=== PATIENT | female | born 1970 ===

== ENCOUNTER 2017-05-06 08:05 | Day surgery (SDC) | payer BC ==
[~2017-05-06 08:05] MED LIST: Buffered Lidocaine 0.9% SYRIN* 5 ML/SYR SYRINGE INTRADERM ONE
[2017-05-06] MEDS ORDERED: fentaNYL* 50 MCG/ML 2 ML VIAL (100 MCG VIAL) ONE (08:22)
[2017-05-06] MEDS ORDERED: Midazolam* 1 MG/ML 2 ML VIAL (2 MG) ONE (08:22)
[2017-05-06] MEDS ORDERED: Propofol* 10 MG/ML 20 ML BTL IV PUSH ONE (08:30)
[2017-05-06] MEDS ORDERED: Clindamycin 900 MG IVPREMIX(* 900 MG/50 ML SDV IV ONE (08:52)
[2017-05-06] MEDS ORDERED: Lidocaine 1% INJ* 10 MG/ML 30 ML SDV ONE (09:07)
[2017-05-06] MEDS ORDERED: Bupivacaine 0.5% SDV PF* 10-30ML VIAL ONE (09:07)
[2017-05-06] MEDS ORDERED: fentaNYL* 50 MCG/ML 2 ML VIAL (100 MCG VIAL) IV PRN (09:43)
[2017-05-06] MEDS ORDERED: Ketorolac INJ* 30 MG/ML 1 ML VIAL IV PRN (09:43)
[2017-05-06] MEDS ORDERED: Naloxone* 0.4 MG/ML 1 ML VIAL IV PRN (09:43)
[2017-05-06] MEDS ORDERED: DiMENhydriNATE IV* 50 MG/ML VIAL IV PUSH PRN (09:45)
[2017-05-06] MEDS ORDERED: Dexamethasone IV* 4 MG/ML 1 ML (4 MG) ONE (09:50)
[2017-05-06 10:33] VITALS: BP 121/71
--- NOTE | 2017-05-06 12:50 | OP ---
DATE OF OPERATION: 05/06/2017. DATE OF : 1970. SURGEON: Bradley Dobson DPM. COAL CARRIER: None. ANESTHESIA: MAC with local. PRE-OP DIAGNOSIS: 1. Painful dorsal bone spur at the base of the first metatarsal and medial cuneiform joint on the ri ght foot. 2. Synovial cyst with associated neuritis on the right foot. POST-OP DIAGNOSIS: 1. Painful dorsal bone spur at the base of the first metatarsal and medial cuneiform joint on the ri ght foot. 2. Synovial cyst with associated neuritis on the right foot. OPERATIVE PROCEDURE: 1. Excision of synovial cyst from the dorsal right foot. 2. Excision of bone spurs from the base of the first metatarsal and medial cuneiform joint on the ri ght foot. PATHOLOGY: Resected hypertrophic bone and synovial cyst. HEMOSTASIS: Pneumatic ankle tourniquet. ESTIMATED BLOOD LOSS: Less than 10 cc. INDICATIONS: Patient with chronic dorsal bone spur on the right foot which has progressively grown i n size. There is also intermittent swelling and inflammation associated with this, as well as parest hesia and pain wearing a closed shoe. The condition has worsened to the point where she often cannot wear shoes due to the pain. She opts for surgery at this time to attempt to remove the bone growth and reduce the pain so it improves her ability to wear shoes without pain and walk. DESCRIPTION OF PROCEDURE: The patient was brought to the operating room and placed on the operating room table in supine position. The anesthesia department administered IV sedation and peripheral ner ve block performed about the dorsal right foot with a 1:1 mixture of 1% Lidocaine plain and 0.5% David bruce plain. The right foot was then prepped and draped in the usual fashion. The right foot was the n exsanguinated with a Esmarch bandage and a pneumatic ankle tourniquet was inflated to 250 mmHg abov e a well-padded right ankle. Attention was direct to the dorsal aspect of the right foot where a vis ible and palpable subcutaneous cyst and bone spur was noted at the base of the first metatarsal and m edial cuneiform joint. A curvilinear incision was made deep into the subcutaneous tissue with care be ing taken to retract neurovascular structures and cauterized superficial bleeders as needed. Medial to the mass was the deep peroneal nerve and more medial was a branch of the medial dorsal cutaneous n erve. These were identified and protected throughout the procedure. Dissection was carried down to the deep fascia which was incised and as the periosteal tissue and dorsal ligamentous tissue was inci sed, there was pink, yellowish synovial cyst protruding from this area which was resected and sent __ specimen. Subperiosteal dissection was carried about the bone spur for adequate exposure. Once again, there are portions of the synovial cyst which were visual and resected with a Rongeur. Next using a sagittal saw, the dorsal spur at the distal aspect of the medial cuneiform and the base of the first metatarsal were resected. Rongeur was also used to resect hypertrophic bone in the chris ins of this area as well. A power tran was used to further reduce and smooth this area. It should n oted the bone spur proliferation was resected in a similar concave manner. The surgical site was flu shed with copious amounts of normal sterile saline. The capsular and ligamentous structures were re approximated and secured with 2-0 Vicryl. The deep fascia and subcutaneous tissues were reapproximat ed with 4-0 Vicryl and skin was reapproximated and secured with 5-0 nylon. The surgical site was inf iltrated with 12 mg Dexamethasone Phosphate. The incision was dressed with Xeroform gauze and a slig ht sterile compressive dressing was applied consisting of 4 x 4 gauze, Karlos, and light Coban wrap. The pneumatic ankle tourniquet was deflated about the right ankle and a prompt hyperemic response was noted in about all five digits of the patient's right foot. Having appeared to have tolerated the p rocedure and anesthesia well, the patient was transported via cart from the operating room to recover y in satisfactory condition with a capillary refill less than three seconds to all digits of the righ t foot. [id number]/[id number] #: [id number]
== END 2017-05-06 10:40 | disposition home or self-care (01) ==
LOC: OREAST 08:05
PROVIDERS: ATTEND Podiatrist Foot Surgery
DX: M89.271 Other disorders of bone development and growth, right ankle and foot (principal); F43.21 Adjustment disorder with depressed mood; M71.371 Other bursal cyst, right ankle and foot; G57.81 Other specified mononeuropathies of right lower limb
CPT/HCPCS: 81025; 88304; 88311; J1100; J2250; J2704; J3010